=== PATIENT | female | born 1930 | race Caucasian/White ===

== ENCOUNTER 2016-11-21 05:42 | Inpatient (IN) ==
[2016-11-18 10:28] LABS: Basophils # 0.1 10*3/uL (0.0-0.2); Basophils % 0.6 % (0.0-0.8); Hematocrit 44.8 VOL% (35.7-47.0); Hemoglobin 14.9 GM/DL (12.0-16.0); Immature Granulocytes % 0.4 %; Immature Granulocytes Absolute 0.04 #; Lymphocytes # 1.4 10*3/uL (1.4-4.0); Lymphocytes % 15.9 % (21.3-54.2); Mean Corpuscular HGB Conc 33.3 GM/DL (32-36); Mean Corpuscular Hemoglobin 31 PG (27-34); Mean Corpuscular Volume 93.9 FL (87-102); Mean Platelet Volume 12.8 FL (9.6-12.0); Monocytes # 0.8 10*3/uL (0.11-0.8); Monocytes % 8.6 % (1.7-12.7); Neutrophils # 6.7 10*3/uL (1.4-7.4); Neutrophils % 74.5 % (38.7-73.9); Platelet Count 176 T/CUMM (130-400); Red Blood Count 4.77 MC/CUMM (3.8-5.5); Red Cell Distribution Width 13.3 % (9.3-17.3)
--- NOTE | 2016-11-18 10:38 | XRay Report ---
XR chest 2V Date: 11/18/2016 10:11 AM History: Respiratory preoperative evaluation Comparison: 07/25/2016 Technique: PA and lateral chest Findings: The heart is normal in size with arterial calcifications. The lungs, mediastinum, and osseous structures are stable in appearance. Prior cholecystectomy with degenerative changes. Impression: No acute cardiopulmonary pathology identified. PROCEDURE INTERPRETED AT [facility] DEPARTMENT OF RADIOLOGY Final Report Signed by: Dr. Emiliana Barfield
[2016-11-18 10:50] LABS: Apearance,Urine CLEAR (Clear); Bilirubin,Urine Negative (Negative); Blood, Urine Negative (Negative); Glucose,Urine (UA) Negative (Negative); Ketones,Urine Negative (Negative); Mucus,Urine Occasional /LPF (Occasional); Nitrite,Urine Negative (Negative); Protein,Urine Negative; Squamous Epithelial Cell,Urine Occasional /HPF (0-10); Urine Color Yellow (Yellow); Urine Specific Gravity 1.009 (1.001-1.035); Urine Urobilinogen < 2.0 EU/DL (0.2-1.0); WBC,Urine 1 /HPF (0-6)
[2016-11-18 11:09] LABS: PT Patient Result 10.4 SECS; Partial Thromboplastin Time 28.2 SECS (0-40)
[2016-11-18 11:21] LABS: Albumin 3.5 G/DL (3.4-5.0); Bilirubin,Total 0.5 MG/DL (0.2-1.0); Calcium 10.1 MG/DL (8.5-10.1); Osmolality,Calculated 288.1 MOS/KG (273-304); Potassium 3.7 MMOL/L (3.5-5.1); Total Protein 6.6 G/DL (6.4-8.3)
[2016-11-21] MEDS ORDERED: CLINDAMYCIN INJ 900 MG in PREMIX 1 EACH IV ONE (06:00)
[2016-11-21] MEDS ORDERED: VANCOMYCIN INJ 1,000 MG in SODIUM CHLORIDE 0.9% 250 ML IV ONE ×2 (06:00→18:00)
--- NOTE | 2016-11-21 06:38 | History and Physical Update ---
History and Physical Update - History and Physical H&P was reviewed, the patient examined and there: are no changes in the patients condition since last H&P was completed.
[2016-11-21] MEDS ORDERED: VANCOMYCIN 1,000 MG VIAL ONE ×2 (08:07→08:24)
[2016-11-21] MEDS ORDERED: CLINDAMYCIN INJ 50 ML IV ONE (08:07)
[2016-11-21] MEDS ORDERED: BACITRACIN OINT 0.9 GM PACK TOP ONE (08:53)
[2016-11-21] MEDS ORDERED: LACTATED RINGERS 1,000 ML IV SCH (09:00)
[2016-11-21] MEDS ORDERED: TRANEXAMIC ACID 1,000 MG/10 ML VIAL IV ONE (09:09)
[2016-11-21] MEDS ORDERED: MAGNESIUM HYDROXIDE SUSP 30 ML UDCUP PO PRN (10:01)
[2016-11-21] MEDS ORDERED: MORPHINE 2 MG/1 ML SYRINGE IV PRN ×2 (10:01)
[2016-11-21] MEDS ORDERED: ZALEPLON 5 MG CAPSULE PO PRN (10:01)
[2016-11-21] MEDS ORDERED: ONDANSETRON 4 MG/2 ML VIAL IV PRN (10:01)
[2016-11-21] MEDS ORDERED: oxyCODONE IR 5 MG TABLET PO PRN ×2 (10:01)
--- NOTE | 2016-11-21 11:12 | Operative Note ---
Date of procedure: 11/21/16 Procedure: DIAGNOSIS: Right knee primary osteoarthrosis PROCEDURE: Right total knee arthroplasty (cpt #36831) SURGEON: Balwinder ANESTHESIA: Spinal with a postoperative adductor canal block PROCEDURE and FINDINGS: After adequate was induced, the patient's knee was prepped and draped in the usual sterile fashion. The limb was exsanguinated with Esmarch. Tourniquet was inflated to 300 mmHg. A median parapatellar approach was made. Femur was cut using an intramedullary guide and a 4 in 1 cutting jig in 5 degrees of valgus. ACL and menisci were excised. Tibia was cut using intramedullary guide. Patella was cut using freehand technique. Components were trialed. Tibial fin was prepared. Components are cemented in place using Palacos cement and modern cementing techniques. Cement was removed. A 1/8 inch Hemovac drain was placed. The knee was well-balanced and full range of motion with central tracking patella. Deep layers closed with 0-0 Vicryl. Superficial layers were closed with 2-0 and 3-0 Vicryl. Skin was approximated with delfino. Bacitracin and a sterile dressing was applied. Patient was transferred to recovery. A postoperative adductor canal block is anticipated. COMPONENTS: The [employer] Persona system was used. 9 CR narrow femur, the natural tibia, 10 mm liner, 32 mm patella TOURNIQUET TIME: 45 minutes Surgeon / Physician: Aj Britt Jr. Results - Labs CBC & BMP: 11/18/16 10:18 11/18/16 10:18 Discharge Plan - Discharge Medications No Action Calcium (Carb)/Vit D 500-200 [Oscal 500 + D] 1 tablet PO BID Chlorthalidone 12.5 mg PO DAILY Multivit-Minerals/Folic/Ginkgo [One Daily For Women 50+ Adv Tb] 1 each PO DAILY Metoprolol Tartrate 25 mg PO BID Aspirin [Ecotrin] 81 mg PO DAILY Potassium Chloride [Klor-Con M20] 20 meq PO TID - Follow Up or Referral - Forms/Instructions
[2016-11-21] MEDS ORDERED: ROPIVACAINE 0.5% 30 ML VIAL ONE (11:19)
[2016-11-21] MEDS ORDERED: PROPOFOL 200 MG/20 ML VIAL IV ONE (11:57)
[2016-11-21] MEDS ORDERED: SODIUM CHLORIDE 0.9% 250 ML IV ONE (11:57)
[2016-11-21] MEDS ORDERED: MIDAZOLAM 2 MG/2 ML VIAL ONE (11:57)
--- NOTE | 2016-11-21 13:05 | XRay Report ---
XR knee 2V RT Indication: Joint replacement (right knee) Comparison: No relevant comparison. Technique: Frontal and lateral views of the right knee. Findings: Status post total right knee arthroplasty. No evidence of immediate hardware failure. Superficial skin delfino and surgical drain/s overlie the knee. Subcutaneous and joint space air noted which is likely postoperative. Atherosclerotic calcifications demonstrated. IMPRESSION: Status post total right knee arthroplasty. PROCEDURE INTERPRETED AT [facility] DEPARTMENT OF RADIOLOGY Final Report Signed by: Dr Jamaal Fernandez
[2016-11-21] MEDS: LACTATED RINGERS 1,000 ML IV SCH ×2 (13:32→21:18)
--- NOTE | 2016-11-21 14:23 | Orthopedic Progress Note ---
Orthopedics - Subjective Interval history: Very comfortable postop. Right lower extremity is neurovascularly unchanged. Dressing is clean, dry and intact. Plan: Continue per protocol. Exam - Constitutional Vitals: Period Temp Pulse Resp BP Sys/Butt Pulse Ox Last 24 Hr 97.0 F-98.6 F 60-76 16-20 96-144/57-84 96-98 Results - Labs CBC & BMP: 11/18/16 10:18 11/18/16 10:18
[2016-11-21] MEDS: POTASSIUM CHLORIDE 20 MEQ TABLET PO SCH ×2 (15:20→21:17)
[2016-11-21] MEDS: ACETAMINOPHEN 500 MG TABLET PO SCH ×2 (15:20→21:17)
[2016-11-21] MEDS: KETOROLAC 15 MG/1 ML VIAL IV SCH ×2 (15:21→18:45)
[2016-11-21] MEDS: CLINDAMYCIN INJ 900 MG in PREMIX 1 EACH IV SCH (15:21)
--- NOTE | 2016-11-21 15:40 | Anesthesia Post-Op ---
Anesthesia Post OP - Post Ansesthetic Evaluation Patient seen in post op: Yes Resp: within normal limits CV: within normal limits Mental: within normal limits Temp: within normal limits [id number]: within normal limits Nausea and Vomiting: within normal limits Pain: within normal limits
[2016-11-21] MEDS ORDERED: INFLUENZA VIRUS VACCINE 0.5 ML SYRINGE IM ONE (16:15)
--- NOTE | 2016-11-21 17:25 | Cardiology Consult Note ---
Letty Barcenas April, RN, am scribing for, and in the presence of, Serge Roland MD 17:25. Assessment and Plan - Time spent with patient Time spent with patient: Greater than 30 minutes (Due to assessment, planning, documentation, medication review) (1) Palpitation Status: Acute Assessment and plan: 1. 86-year-old with hypertension and suspected previous PSVT doing well immediately status post knee surgery this morning. 2. History of normal ejection fraction with EF 65% July 2016 3. Hemodynamically stable 4. Check EKG, troponin, electrolytes in the morning Current Visit: Yes History of Present Illness - Data of Consult Patient: known to practice within the last 3 years Consult date: 11/21/16 Requesting Physician: Aj Britt Jr. - Consult Narrative Reason for consult: Follow postoperatively History of present illness: Tool Analyst: Dr. Minaya Ms. Purdy is a 86 year old female who is routinely followed by Dr. Minaya with a history of palpitations, hypertension, and hypokalemia. She was most recently seen in the office by Dr. Minaya November 08 of this year. He saw her as a preoperative evaluation for right knee replacement. She was doing well and he felt there was no need to order a stress test or echocardiogram. Her last echocardiogram was August 04 of this year, with ejection fraction of 60%. Dr. Minaya felt she would be low to intermediate marc/post operative risk. Ms. Purdy was admitted November 21 for right total knee replacement by Dr. Britt. We are seeing the patient postoperatively. She denies any chest pain, shortness of breath, palpitations, or dizziness. Dressing noted to right lower extremity. CC: Aj Britt Jr., - Home Medications and Allergies Home Medications: Home Medications Medication Instructions Recorded Confirmed Type Calcium (Carb)/Vit D 500-200 1 tablet PO BID 07/25/16 11/21/16 History [Oscal 500 + D] Chlorthalidone 12.5 mg PO DAILY 07/25/16 11/21/16 History Multivit-Minerals/Folic/Ginkgo 1 each PO DAILY 07/25/16 11/21/16 History [One Daily For Women 50+ Adv Tb] Potassium Chloride [Klor-Con M20] 20 meq PO TID 07/25/16 11/21/16 History Aspirin [Ecotrin] 81 mg PO DAILY 11/18/16 11/21/16 History Metoprolol Tartrate 25 mg PO BID 11/18/16 11/21/16 History Allergies/Adverse Reactions: Allergies Allergy/AdvReac Type Severity Reaction Status Date / Time Penicillins Allergy RASH/SWELLING Verified 11/18/16 10:11 THROAT Sulfa (Sulfonamide Allergy SWELLING Verified 11/18/16 10:11 Antibiotics) EXTREMITIES - Constitutional Constitutional: Present: as per HPI - EENT Eyes: Present: requires corrective lense Ears: Absent: decreased hearing Nose, mouth and throat: Absent: epistaxis, headache(s), neck pain - Cardiovascular Cardiovascular: Absent: chest pain at rest, chest pain with activity, diaphoresis, dyspnea, dyspnea on exertion, edema, radiating jaw, neck or arm pain, orthopnea, palpitations - Respiratory Respiratory: Absent: cough, dyspnea, hemoptysis, dyspnea on exertion, wheezing - Gastrointestinal Gastrointestinal: Absent: abdominal pain, constipation, diarrhea, hematemesis, hematochezia, melena, nausea, vomiting - Genitourinary Genitourinary: Absent: dysuria, hematuria - Musculoskeletal Musculoskeletal: Absent: back pain - Neurological Neurological: Absent: confusion, dizziness, frequent falls, headache(s), syncope - Psychiatric Psychiatric: Absent: anxiety, confusion, depression Medical,Surgical,& Family Hx - Medical History Cardio: History of: Hypertension HEENT: History of: Ear Problem (RT EAR NO EAR DRUM.), Eye Problem (GLASSES.), Dental Problems (UPPER DENTURE PARTIAL LOWER) Endocrine: History of: Dyslipidemia (PAST HX.) Respiratory: History of: Respiratory Problems (FLU VAC-NO;PNEU VAC-YES.) Gastrointestinal: History of: Polyps (REMOVED.) Musculoskeletal: History of: Musculoskeletal Problems (RT KNEE OA) Other: History of: Anesthesia Reactions (DEMEROL/MORPHINE-HEADACHE.) - Surgical History HEENT Surgeries: Surgical HX of: Tonsilectomy & Adenoidectomy Abdominal Surgeries: Surgical HX of: Appendectomy, Cholecystectomy, Colonoscopy (DR MAR.), EGD (DR MAR.) Reproductive Surgeries: Surgical HX of;: Hysterectomy, Tubal Ligation Orthopedic Surgeries: Surgical HX of;: Orthopedic Surgery (RT RCR.), Total Knee Replacement (Right11/21/2016) - Family History Family History: Reports;: Family Diabetes (Daughter), Family Hypertension ( Father) - Social History Smoking Status: Never smoker Have you smoked in the last 12 months: No Frequency of Alcohol Use: None Type of Drug Use: None Lives With:: Chrystal Functional capacity: independent ambulation Physical Examination Vital Signs Temp Pulse Resp BP Pulse Ox 98.1 F 62 18 144/83 96 11/21/16 08:23 11/21/16 08:23 11/21/16 08:23 11/21/16 08:23 11/21/16 08:23 General: Present: Appears Well, No Apparent Distress HEENT: Present: PERRL, Mucus Membranes Moist Neck: Present: Supple Neck, Midline Trachea, No Bruit Cardiac: Present: Reg Rate and Rhythm, Systolic Murmur Lungs: Present: Normal Breath Sounds, No Wheeze, Rales, Rhonchi Neuro: Absent: Resting Tremor, Essential Tremor Abdomen: Present: Soft, Active Bowel Sounds, Non-Tender. Absent: Distended Skin: Absent: Rash, Suspicious Lesions Musculoskeletal: Present: No Pain, Normal Range of Motion Extremities: Present: No Edema, Normal Upper Extr. Pulses, Normal Lower Extr. Pulses, Other (Unable to assess right lower extremity due to dressing) Result/EKG - Labs CBC & BMP: 11/18/16 10:18 11/18/16 10:18 Luan Barcenas Randall Scott, MD, personally performed the services described in this documentation, ascribed by Blanka Saenz RN in my presence, and it is both accurate and complete 725 .
[2016-11-21] MEDS: METOPROLOL TARTRATE 25 MG TABLET PO SCH (21:17)
[2016-11-21] MEDS: DOCUSATE SODIUM 100 MG CAPSULE PO SCH (21:17)
[2016-11-22] MEDS: CLINDAMYCIN INJ 900 MG in PREMIX 1 EACH IV SCH (01:55)
[2016-11-22] MEDS: ACETAMINOPHEN 500 MG TABLET PO SCH ×2 (01:56→08:14)
[2016-11-22] MEDS: KETOROLAC 15 MG/1 ML VIAL IV SCH ×2 (01:56→08:11)
[2016-11-22] MEDS: FONDAPARINUX 2.5 MG/0.5 ML SYRINGE SUBCUT SCH (05:19)
[2016-11-22 06:39] LABS: Basophils % 0.2 % (0.0-0.8); Hematocrit 36.8 VOL% (35.7-47.0); Hemoglobin 12.7 GM/DL (12.0-16.0); Immature Granulocytes % 0.7 %; Immature Granulocytes Absolute 0.09 #; Lymphocytes # 1.1 10*3/uL (1.4-4.0); Lymphocytes % 7.9 % (21.3-54.2); Mean Corpuscular HGB Conc 34.5 GM/DL (32-36); Mean Corpuscular Hemoglobin 32 PG (27-34); Mean Corpuscular Volume 91.5 FL (87-102); Mean Platelet Volume 13.3 FL (9.6-12.0); Monocytes # 1.3 10*3/uL (0.11-0.8); Monocytes % 9.7 % (1.7-12.7); Neutrophils # 10.9 10*3/uL (1.4-7.4); Neutrophils % 81.5 % (38.7-73.9); Platelet Count 147 T/CUMM (130-400); Red Blood Count 4.02 MC/CUMM (3.8-5.5); Red Cell Distribution Width 13.2 % (9.3-17.3); White Blood Count 13.4 T/CUMM (4-12)
[2016-11-22 07:08] LABS: Osmolality,Calculated 288.1 MOS/KG (273-304); Potassium 3.6 MMOL/L (3.5-5.1)
[2016-11-22 07:12] LABS: Alanine Aminotransferase 33 U/L (13-56); Albumin 2.9 G/DL (3.4-5.0); Alkaline Phosphatase 83 U/L (45-117); Aspartate Amino Transferase 31 U/L (0-37); Blood Urea Nitrogen 22 MG/DL (7-18); Calcium 8.1 MG/DL (8.5-10.1); Glucose 140 MG/DL (74-106); Magnesium 1.7 MG/DL (1.8-2.4); Osmolality,Calculated 285.3 MOS/KG (273-304); Potassium 3.6 MMOL/L (3.5-5.1); Sodium 141 MMOL/L (136-145); Total Protein 5.4 G/DL (6.4-8.3); Troponin I Only < 0.015 NG/ML (0.00-0.045)
--- NOTE | 2016-11-22 07:22 | Orthopedic Progress Note ---
Orthopedics - Subjective Interval history: Comfortable. NV ok. Dressing dry. Mobilize with therapy. Probably home tomorrow with HH. Exam - Constitutional Vitals: Period Temp Pulse Resp BP Sys/Butt Pulse Ox Last 24 Hr 97.0 F-98.6 F 60-100 16-20 96-161/52-84 92-98 Results - Labs CBC & BMP: 11/22/16 06:16 11/22/16 06:16
--- NOTE | 2016-11-22 07:39 | Order Completion Report ---
See report scanned to EMR
[2016-11-22] MEDS: POTASSIUM CHLORIDE 20 MEQ TABLET PO SCH ×3 (08:12→20:54)
[2016-11-22] MEDS: CHLORTHALIDONE 25 MG TABLET PO SCH (08:12)
[2016-11-22] MEDS: MULTIVITAMIN (CENTRUM) TABLET PO SCH (08:14)
[2016-11-22] MEDS: METOPROLOL TARTRATE 25 MG TABLET PO SCH ×2 (08:14→20:54)
--- NOTE | 2016-11-22 09:41 | Cardiology Progress Note ---
Letty Barcenas April, RN, am scribing for, and in the presence of, Serge Roland MD 09:41. Assessment and Plan (1) Palpitation Status: Acute Assessment and plan: Initial assessment and plan November 21, 2016: 1. 86-year-old with hypertension and suspected previous PSVT doing well immediately status post knee surgery this morning. 2. History of normal ejection fraction with EF 65% July 2016 3. Hemodynamically stable 4. Check EKG, troponin, electrolytes in the morning Assessment and plan November 22, 2016: 1. Ms. Kearney is doing well clinically and is hemodynamically stable POD #1 after knee surgery. 2. She has maintain normal sinus rhythm with no acute EKG changes and normal troponin this morning. 3. Hypertension is been intermittent, but normotensive earlier this morning. No changes recommended. 4. She can be discharged from a cardiac standpoint, and she can keep her routine follow-up with Dr. Minaya. Current Visit: Yes Cardiology - PN: Subj Interval history: Remote Sensing Advisor: Dr. Minaya Summary: Ms. Purdy is a 86 year old female who is routinely followed by Dr. Minaya with a history of palpitations, hypertension, and hypokalemia. She was most recently seen in the office by Dr. Minaya November 08 of this year. He saw her as a preoperative evaluation for right knee replacement. She was doing well and he felt there was no need to order a stress test or echocardiogram. Her last echocardiogram was August 04 of this year, with ejection fraction of 60%. Dr. Minaya felt she would be low to intermediate marc/post operative risk. Ms. Purdy was admitted November 21 for right total knee replacement by Dr. Britt. Cardiology was asked to evaluate the patient postoperatively. November 22, 2016: Ms. Purdy is day 1 status post right total knee replacement by Dr. Britt. She denies any chest pain, shortness of breath, palpitations, or dizziness. Her only complaint is of nausea. Her blood pressures were elevated little bit this morning, but she states she was very nauseated when they were taking her blood pressure. Potassium this morning is 3.6, magnesium 1.7, negative cardiac biomarkers. Discharge planning is in place for her to go home with home health tomorrow. Review of systems: Cardiovascular: Denies chest pain or palpitations. Respiratory: Denies shortness of breath, oxygen not in use. Exam (Progress Note) - Constitutional Vitals: Period Temp Pulse Resp BP Sys/Butt Pulse Ox Last 24 Hr 97.0 F-98.6 F 60-100 16-20 96-164/52-84 92-98 General appearance: normal weight, no acute distress Exam: General: Present: Appears Well, No Apparent Distress HEENT: Present: PERRL, Mucus Membranes Moist Neck: Present: Supple Neck, Midline Trachea, No Bruit Cardiac: Present: Reg Rate and Rhythm, Systolic Murmur Lungs: Present: Normal Breath Sounds, No Wheeze, Rales, Rhonchi Neuro: Absent: Resting Tremor, Essential Tremor Abdomen: Present: Soft, Active Bowel Sounds, Non-Tender. Absent: Distended Skin: Absent: Rash, Suspicious Lesions Musculoskeletal: Present: No Pain, Normal Range of Motion Extremities: Present: No Edema, Normal Upper Extr. Pulses, Normal Lower Extr. Pulses, Other (Unable to assess right lower extremity due to dressing) - Head Head exam: Present: normal inspection, normocephalic, atraumatic - Neck Neck exam: Present: normal inspection - Respiratory Respiratory exam: Present: clear to auscultation bilaterally - Cardiovascular Cardiovascular exam: Present: regular rate and rhythm. Absent: diastolic murmur , rubs - GI/Abdominal GI/Abdominal exam: Present: soft. Absent: tenderness - Extremities Exam Extremities exam: Absent: edema - Neurological Exam Neurological exam: Present: alert, oriented X3 Result/EKG - Labs CBC & BMP: 11/22/16 06:16 11/22/16 06:16 Lab Results: I have reviewed the past 24 hour labs Labs: Laboratory Results - last 24 hr 11/22/16 11/22/16 11/22/16 06:16 06:16 06:16 WBC 13.4 H D RBC 4.02 Hgb 12.7 D Hct 36.8 MCV 91.5 MCH 32 MCHC 34.5 RDW 13.2 Plt Count 147 MPV 13.3 H Neut % (Auto) 81.5 H Lymph % (Auto) 7.9 L [place] % (Auto) 9.7 Eos % (Auto) 0.0 Baso % (Auto) 0.2 Neut # (Auto) 10.9 H Lymph # (Auto) 1.1 L [place] # (Auto) 1.3 H Eos # (Auto) 0.0 Baso # (Auto) 0.0 Immature Gran % 0.7 Nucleated RBC % 0.0 Immature Gran # 0.09 Nucleated RBCs # 0.00 Immature Plt Fraction 0.0 Sodium 142 141 Potassium 3.6 3.6 Chloride 108 H 107 Carbon Dioxide 22 24 Anion Gap 15.6 H 13.6 BUN 21 H 22 H Creatinine 1.00 1.00 GFR Calculation 50 50 BUN/Creatinine Ratio 21.00 H 22.00 H Glucose 145 H 140 H Calculated Osmolality 288.1 285.3 Calcium 8.0 L D 8.1 L Magnesium 1.7 L Total Bilirubin 0.40 AST 31 ALT 33 Alkaline Phosphatase 83 Total Creatine Kinase 93 CK-MB (CK-2) < 1.0 Troponin I < 0.015 Total Protein 5.4 L Albumin 2.9 L Globulin 2.5 Albumin/Globulin Ratio 1.1 Specialty Discharge - Follow Up or Referrals Follow up with: Clem Minaya MD [Physician] - 1 Month (with EKG) Luan Barcenas Randall Scott, MD, personally performed the services described in this documentation, ascribed by Blanka Saenz RN in my presence, and it is both accurate and complete 941 .
[2016-11-22] MEDS: LACTATED RINGERS 1,000 ML IV SCH (10:12)
[2016-11-22] MEDS: DOCUSATE SODIUM 100 MG CAPSULE PO SCH ×2 (10:17→20:54)
[2016-11-23] MEDS: FONDAPARINUX 2.5 MG/0.5 ML SYRINGE SUBCUT SCH (05:26)
[2016-11-23 07:11] LABS: Basophils # 0.1 10*3/uL (0.0-0.2); Basophils % 0.4 % (0.0-0.8); Hematocrit 37.2 VOL% (35.7-47.0); Hemoglobin 12.7 GM/DL (12.0-16.0); Immature Granulocytes % 0.5 %; Immature Granulocytes Absolute 0.06 #; Lymphocytes # 1.2 10*3/uL (1.4-4.0); Lymphocytes % 9.8 % (21.3-54.2); Mean Corpuscular HGB Conc 34.1 GM/DL (32-36); Mean Corpuscular Hemoglobin 31 PG (27-34); Mean Corpuscular Volume 91.9 FL (87-102); Monocytes # 1.1 10*3/uL (0.11-0.8); Neutrophils # 9.7 10*3/uL (1.4-7.4); Neutrophils % 80.3 % (38.7-73.9); Platelet Count 139 T/CUMM (130-400); Red Blood Count 4.05 MC/CUMM (3.8-5.5); Red Cell Distribution Width 13.5 % (9.3-17.3); White Blood Count 12.1 T/CUMM (4-12)
--- NOTE | 2016-11-23 07:37 | Discharge Summary ---
Hospital Course - Hospital Course Hospital Course: Ms Purdy was admitted after undergoing an uncomplicated right total knee arthroplasty. She received perioperative DVT and antimicrobial prophylaxis. She received physical therapy. She was discharged home postoperative day #2 in stable condition. Specialty Discharge - Follow Up or Referrals Follow up with: Clem Minaya MD [Physician] - 1 Month (with EKG) Discharge Plan - Discharge Data Disposition: Home Health Service Condition at Discharge: Stable Discharge Diet: advance to your usual diet Hygiene: may shower Weight Bearing at Discharge: weight bear as tolerated Driving: not until seen by doctor - Discharge Medications Continue Calcium (Carb)/Vit D 500-200 [Oscal 500 + D] 1 tablet PO BID Chlorthalidone 12.5 mg PO DAILY Multivit-Minerals/Folic/Ginkgo [One Daily For Women 50+ Adv Tb] 1 each PO DAILY Metoprolol Tartrate 25 mg PO BID Aspirin [Ecotrin] 81 mg PO DAILY Potassium Chloride [Klor-Con M20] 20 meq PO TID - Follow Up or Referral Follow Up: Clem Minaya MD [Physician] - 1 Month (with EKG) - Forms/Instructions Additional Discharge Instructions: Daily dry dressing changes. Weightbearing as tolerated. Arrange walker and bedside commode for home use. Wear PARDEEP hose for 1 month. Discontinue delfino and Steri-Strip wound on December 03, 2016. Follow-up appointment in 4 weeks. Prescription for [place] 7.5 with 30 tablets was written. Take aspirin 325 mg by mouth daily for 21 days. Resume baby aspirin then.. Exam - Constitutional Vitals: Period Temp Pulse Resp BP Sys/Butt Pulse Ox Last 24 Hr 96.7 F-98.4 F 67-87 16-18 123-159/66-87 92-99 Discharge Results Procedures and tests throughout hospitalization: Pending Orders 11/24/16 04:00 Comp Blood Count Auto Diff IN AM Labs on day of discharge: Labs from last 24 hours 11/23/16 06:51 WBC 12.1 H RBC 4.05 Hgb 12.7 Hct 37.2 MCV 91.9 MCH 31 MCHC 34.1 RDW 13.5 Plt Count 139 MPV 13.0 H Neut % (Auto) 80.3 H Lymph % (Auto) 9.8 L [place] % (Auto) 9.0 Eos % (Auto) 0.0 Baso % (Auto) 0.4 Neut # (Auto) 9.7 H Lymph # (Auto) 1.2 L [place] # (Auto) 1.1 H Eos # (Auto) 0.0 Baso # (Auto) 0.1 Immature Gran % 0.5 Nucleated RBC % 0.0 Immature Gran # 0.06 Nucleated RBCs # 0.00 Immature Plt Fraction 0.0 DS: Provider Date of admission: 11/21/16 10:01 Primary care physician: Marry Montgomery MD Attending physician on admission: Aj Britt Jr., Consults: 11/21/16 10:01 Consult to Case Mgmt/Social Srvs [CONS] Routine Reason for Case Mgmt/Social Srvs: Rehab Home Health Equipment Consult Comment: Bedside Commode, CPM, Walker Consult to Occupational Therapy [CONS] Routine Reason for Occupational Therapy: Evaluate and Treat Consult Comment: ADL's Consult to Physical Therapy [CONS] Routine Reason for Physical Therapy: Evaluate and Treat Gait Training Start Therapy: Today 11/21/16 13:09 Consult to Physician [CONS] Routine Comment: Consulting Provider: Clem Minaya Consulting Provider Notified: Yes When should Consulting Provider be notified: Now Person Notified: [email or web address] Date Notified: 11/21/16 Time Notified: 13:12 11/21/16 16:22 Consult to Pastoral Services [CONS] Routine Comment: Pastoral Screen: Request Child Care Nurse Visit Pastoral Screen Source of Request: Patient Discharging clinician: Aj Britt Jr., Expected date of discharge: 11/23/16
[2016-11-23] MEDS: METOPROLOL TARTRATE 25 MG TABLET PO SCH (09:37)
[2016-11-23] MEDS: DOCUSATE SODIUM 100 MG CAPSULE PO SCH (09:37)
[2016-11-23] MEDS: CHLORTHALIDONE 25 MG TABLET PO SCH (09:37)
[2016-11-23] MEDS: MULTIVITAMIN (CENTRUM) TABLET PO SCH (09:37)
[2016-11-23] MEDS: POTASSIUM CHLORIDE 20 MEQ TABLET PO SCH (09:38)
--- NOTE | 2016-11-23 11:17 | Pathology Report from [facility] ---
[facility] [place] ACCESSION # : [id number] PATIENT NAME : Nellie Call ORDERING DR : ES POLO MD CLINICAL HX: Right knee osteoarthritis POST-OP DX: Same SPECIMEN INFO: Right knee bone and tissue GROSS DESCRIPTION: The specimen is received in formalin labeled with the patients name and consists of an aggregate of bone, cartilage and adipose tissue measuring 1.5 x 14.8 cm. The articular surfaces are focally degenerative with subchondral eburnation measuring up to 3.0 cm. Areas of cartilage lipping are noted. One Piece Expansion Maker Hand tissue submitted in one cassette. DIAGNOSIS FOR NELLIE CALL: RIGHT KNEE, TOTAL REPLACEMENT: Fragments of benign bone and cartilage with reactive/degenerative changes, c/w osteoarthritis. COLLECTED DATE: 11/21/2016 [facility] [place] REPORT DATE: 11/23/2016 ELECTRONICALLY SIGNED BY: Drea Casey M.D. 11/23/2016 - 9:37:56 MTDD
[2016-11-23 13:31] VITALS: BP 177/96
== END 2016-11-23 13:00 | disposition home health service (06) | DRG 470 ==
LOC: N.OR 05:42 → N.SDSINP 05:44 → N.3E 12:58
PROVIDERS: ADMIT Orthopaedic Surgery; ATTEND Orthopaedic Surgery